=== PATIENT | female | born 1990 | race Hispanic/Latino ===

== ENCOUNTER 2020-07-13 13:34 | Emergency (ER) | payer MEDICAID, OTHER, SELFPAY ==
[2020-07-13 14:03] LABS: APPEARANCE,URINE Clear (CLEAR); BILIRUBIN,URINE Negative (NEGATIVE); COLOR,URINE Yellow (YELLOW); GLUCOSE, URINE (UA) Negative (NEGATIVE); KETONES,URINE Negative (NEGATIVE); LEUKOCYTE ESTERASE ,URINE Negative (NEGATIVE); NITRATE,URINE Negative (NEGATIVE); OCCULT BLOOD,URINE Negative (NEGATIVE); PROTEIN,URINE Trace mg/dL (NEGATIVE); UROBILINOGEN,URINE 0.2 mg/dL (0.2-1.0)
[2020-07-13 14:05] LABS: HCG,QUAL RESULT NEGATIVE (NEGATIVE)
[2020-07-13] MEDS ORDERED: ONDANSETRON 4MG INJ ONE (14:16)
[2020-07-13] MEDS ORDERED: MORPHINE 4 MG SYG ONE (14:17)
[2020-07-13] MEDS ORDERED: CLINDAMYCIN IVPB 600MG/50ML 50 ML IV ONE (14:17)
[2020-07-13 14:19] LABS: BASOPHILS % (AUTO) 0.3 % (0.0-5.0); EOSINOPHILS % (AUTO) 0.1 % (0.0-8.0); HEMATOCRIT 39.9 % (36-48); MEAN CORPUSCULAR HEMOGLOBIN 25.5 pg (27.0-33.0); MEAN CORPUSCULAR HGB CONC 33.8 g/dL (32.0-36.0); MEAN CORPUSCULAR VOLUME 75.4 fL (79-99); NEUTROPHILS % (AUTO) 77.3 % (40.0-77.0); PLATELET COUNT (AUTO) 216 K/uL (130-400); RED BLOOD CELL COUNT(AUTO) 5.29 MIL/uL (4.00-5.50); RED CELL DISTRIBUTION WIDTH 14.1 % (11.0-15.5)
[2020-07-13 14:28] LABS: CREATININE 0.7 mg/dL (0.5-1.5); POTASSIUM 3.7 mmol/L (3.5-5.1)
[2020-07-13 14:33] LABS: ALBUMIN 4.2 g/dL (3.5-5.0); CRP QUANTITATIVE 23.8 mg/L (0.00-9.0); TOTAL PROTEIN, SERUM 8.6 g/dL (6.0-8.3)
[2020-07-13] MEDS ORDERED: IOHEXOL-350 50ML VIAL IV ONE (14:53)
[2020-07-13] MEDS ORDERED: FENTANYL CITRATE PF 50 MCG/1 ML 2ML VIAL ONE (15:55)
== END 2020-07-13 16:17 | disposition home or self-care (01) ==
LOC: EDH 13:34
DX: K04.7 Periapical abscess without sinus (principal); L03.211 Cellulitis of face; R51.9 Headache, unspecified; Z20.822 Contact with and (suspected) exposure to COVID-19; Z98.890 Other specified postprocedural states
CPT/HCPCS: 36415; 70487; 80053; 81003; 81025; 83605; 85025; 86140; 87040 ×2; 87426; 96374; 96375; 99285; J2270; J2405; J3010; J3490; Q9967; U0003; 96365